=== PATIENT | female | born 2000 | race American Indian/Alaskan Native ===

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

== ENCOUNTER 2019-12-15 19:29 | Emergency (ER) | payer BC, MEDICAID ==
[2019-12-15 20:35] LABS: Basophils # (Auto) 0.1 K/mm3 (0.0-0.1); Basophils % (Auto) 1.3 % (0.0-1.8); Eosinophils # (Auto) 0.1 K/mm3 (0.0-0.4); Eosinophils % (Auto) 1.5 % (0.0-4.3); Hematocrit 36.3 % (30.3-42.9); Hemoglobin 11.9 gm/dl (10.1-14.3); Lymphocytes % (Auto) 52.4 % (13.4-35.0); Mean Corpuscular HGB Conc 33 % (30-34); Mean Corpuscular Volume 84 fl (79-97); Monocytes # (Auto) 0.3 K/mm3 (0.0-0.8); Monocytes % (Auto) 7.7 % (0.0-7.3); Platelet Count 309 K/mm3 (140-440); Red Blood Count 4.31 M/mm3 (3.65-5.03)
[2019-12-15 20:37] LABS: Bilirubin,Urine NEG (Negative); Blood,Urine NEG (Negative); Color,Urine Yellow (Yellow); Mucus,Urine FEW /HPF; Protein,Urine <15 mg/dL mg/dL (Negative); Urobilinogen,Urine < 2.0 mg/dL (<2.0)
[2019-12-15 20:45] LABS: Amphetamine Screen,Urine PRESUMPTIVE NEGATIVE; Benzodiazepines Screen,Urine PRESUMPTIVE NEGATIVE; Cannabinoid Screen,Urine PRESUMPTIVE NEGATIVE; Cocaine Screen,Urine PRESUMPTIVE NEGATIVE; Methadone Screen,Urine PRESUMPTIVE NEGATIVE; Opiate Screen,Urine PRESUMPTIVE NEGATIVE
[2019-12-15 20:48] LABS: Alanine Aminotransferase 10 units/L (7-56); Albumin 4.5 g/dL (3.9-5); BUN/Creatinine Ratio 19; Blood Urea Nitrogen 13 mg/dL (7-17); Calcium 9.5 mg/dL (8.4-10.2); Hemolysis Index 6
--- NOTE | 2019-12-15 21:42 | Emergency Department Report ---
ED Palpitations HPI - General Chief Complaint: Arrhythmia/Palpitations Stated Complaint: ABNORMAL HEART BEATS Time Seen by Provider: 12/15/19 20:06 Source: patient Mode of arrival: Ambulatory Limitations: No Limitations - History of Present Illness Initial Comments: Patient is a 19-year-old female presents emergency room with complaints of palpitations that began 2 days ago. She states it feels like her heart is fluttering. She states that it comes and goes. She denies any palpitations currently. She denies any syncope, chest pain, shortness of breath, fever, nausea, vomiting, diarrhea, leg swelling. She denies any recent travel, recent surgery, sick contacts, hormone use. She denies any past medical history or allergies to medications. She states her last menstrual cycle was December 04. She states that she very rarely ever drinks alcohol, states she uses occasional marijuana, denies any other drug use or tobacco use. She states that her only family cardiac history is her grandmother who was 65 when she had a heart issue. The patient states that she very rarely drinks caffeine she states that she has a soda every once in a while - Related Data Home Medications Medication Instructions Recorded Confirmed Last Taken Vit-Fe Fumar-FA [ 1 tab PO QDAY 10/08/18 11/25/18 11/24/18 Vitamin] Previous Rx's Medication Instructions Recorded Last Taken Type diphenhydrAMINE [Benadryl CAP] 25 mg PO Q8HR PRN #30 capsule 11/13/18 Unknown Rx Allergies Allergy/AdvReac Type Severity Reaction Status Date / Time No Known Allergies Allergy Verified 10/08/18 13:51 ED Review of Systems ROS: Stated complaint: ABNORMAL HEART BEATS Other details as noted in HPI Comment: All other systems reviewed and negative ED Past Medical Hx - Past Medical History Previous Medical History?: Yes Hx Hypertension: No Hx Congestive Heart Failure: No Hx Diabetes: No Hx Deep Vein Thrombosis: No Hx Renal Disease: No Hx Sickle Cell Disease: No Hx Seizures: No Hx Psychiatric Treatment: Yes (anxiety) Hx Asthma: No Hx COPD: No Hx HIV: No - Surgical History Past Surgical History?: No - Social History Smoking Status: Never Smoker Substance Use Type: Alcohol, Marijuana - Medications Home Medications: Home Medications Medication Instructions Recorded Confirmed Last Taken Type Vit-Fe Fumar-FA [ 1 tab PO QDAY 10/08/18 11/25/18 11/24/18 History Vitamin] diphenhydrAMINE [Benadryl CAP] 25 mg PO Q8HR PRN #30 capsule 11/13/18 11/25/18 Unknown Rx ED Physical Exam - General Limitations: No Limitations General appearance: alert, in no apparent distress - Head Head exam: Present: atraumatic, normocephalic - Eye Eye exam: Present: normal appearance - ENT ENT exam: Present: mucous membranes moist - Respiratory Respiratory exam: Present: normal lung sounds bilaterally. Absent: respiratory distress, wheezes, rales, rhonchi, stridor, chest wall tenderness, accessory muscle use, decreased breath sounds, prolonged expiratory - Cardiovascular Cardiovascular Exam: Present: regular rate, normal rhythm, normal heart sounds. Absent: systolic murmur, diastolic murmur, rubs, gallop - Extremities Exam Extremities exam: Absent: pedal edema - Neurological Exam Neurological exam: Present: alert, oriented X3 - Psychiatric Psychiatric exam: Present: normal affect, normal mood - Skin Skin exam: Present: warm, dry, intact ED Course Vital Signs 12/15/19 12/15/19 19:35 22:09 Temperature 98.6 F 98.1 F Pulse Rate 64 55 L Respiratory 18 18 Rate Blood Pressure 119/77 Blood Pressure 119/55 [Left] O2 Sat by Pulse 100 100 Oximetry ED Medical Decision Making - Lab Data Result diagrams: 12/15/19 20:14 12/15/19 20:14 Lab Results 12/15/19 12/15/19 12/15/19 Range/Units 20:09 20:09 20:14 WBC 3.9 L (4.5-11.0) K/mm3 RBC 4.31 (3.65-5.03) M/mm3 Hgb 11.9 (10.1-14.3) gm/dl Hct 36.3 (30.3-42.9) % MCV 84 (79-97) fl MCH 28 (28-32) pg MCHC 33 (30-34) % RDW 14.0 (13.2-15.2) % Plt Count 309 (140-440) K/mm3 Lymph % (Auto) 52.4 H (13.4-35.0) % [place] % (Auto) 7.7 H (0.0-7.3) % Eos % (Auto) 1.5 (0.0-4.3) % Baso % (Auto) 1.3 (0.0-1.8) % Lymph # 2.0 (1.2-5.4) K/mm3 [place] # 0.3 (0.0-0.8) K/mm3 Eos # 0.1 (0.0-0.4) K/mm3 Baso # 0.1 (0.0-0.1) K/mm3 Seg Neutrophils % 37.1 L (40.0-70.0) % Seg Neutrophils # 1.4 L (1.8-7.7) K/mm3 Sodium (137-145) mmol/L Potassium (3.6-5.0) mmol/L Chloride (98-107) mmol/L Carbon Dioxide (22-30) mmol/L Anion Gap mmol/L BUN (7-17) mg/dL Creatinine (0.7-1.2) mg/dL Estimated GFR ml/min BUN/Creatinine Ratio % Glucose (65-100) mg/dL Calcium (8.4-10.2) mg/dL Magnesium (1.7-2.3) mg/dL Total Bilirubin (0.1-1.2) mg/dL AST (5-40) units/L ALT (7-56) units/L Alkaline Phosphatase (35-129) units/L Total Creatine Kinase (30-135) units/L Troponin T (0.00-0.029) ng/mL Total Protein (6.3-8.2) g/dL Albumin (3.9-5) g/dL Albumin/Globulin Ratio % TSH (0.270-4.200) mlU/mL HCG, Qual (Negative) Urine Color Yellow (Yellow) Urine Turbidity Clear (Clear) Urine pH 6.0 (5.0-7.0) Ur Specific [place] 1.019 (1.003-1.030) Urine Protein <15 mg/dl (Negative) mg/dL Urine Glucose (UA) Neg (Negative) mg/dL Urine Ketones Neg (Negative) mg/dL Urine Blood Neg (Negative) Urine Nitrite Neg (Negative) Urine Bilirubin Neg (Negative) Urine Urobilinogen < 2.0 (<2.0) mg/dL Ur Leukocyte Esterase Neg (Negative) Urine WBC (Auto) 1.0 (0.0-6.0) /HPF Urine RBC (Auto) 2.0 (0.0-6.0) /HPF U Epithel Cells (Auto) 4.0 (0-13.0) /HPF Urine Mucus Few /HPF Urine Opiates Screen Presumptive negative Urine Methadone Screen Presumptive negative Ur Barbiturates Screen Presumptive negative Ur Phencyclidine Scrn Presumptive negative Ur Amphetamines Screen Presumptive negative U Benzodiazepines Scrn Presumptive negative Urine Cocaine Screen Presumptive negative U Marijuana (THC) Screen Presumptive negative Drugs of Abuse Note Disclamer 12/15/19 12/15/19 12/15/19 Range/Units 20:14 20:14 20:14 WBC (4.5-11.0) K/mm3 RBC (3.65-5.03) M/mm3 Hgb (10.1-14.3) gm/dl Hct (30.3-42.9) % MCV (79-97) fl MCH (28-32) pg MCHC (30-34) % RDW (13.2-15.2) % Plt Count (140-440) K/mm3 Lymph % (Auto) (13.4-35.0) % [place] % (Auto) (0.0-7.3) % Eos % (Auto) (0.0-4.3) % Baso % (Auto) (0.0-1.8) % Lymph # (1.2-5.4) K/mm3 [place] # (0.0-0.8) K/mm3 Eos # (0.0-0.4) K/mm3 Baso # (0.0-0.1) K/mm3 Seg Neutrophils % (40.0-70.0) % Seg Neutrophils # (1.8-7.7) K/mm3 Sodium 138 (137-145) mmol/L Potassium 4.0 (3.6-5.0) mmol/L Chloride 102.9 (98-107) mmol/L Carbon Dioxide 26 (22-30) mmol/L Anion Gap 13 mmol/L BUN 13 (7-17) mg/dL Creatinine 0.7 (0.7-1.2) mg/dL Estimated GFR > 60 ml/min BUN/Creatinine Ratio 19 % Glucose 81 (65-100) mg/dL Calcium 9.5 (8.4-10.2) mg/dL Magnesium 2.00 (1.7-2.3) mg/dL Total Bilirubin 0.40 (0.1-1.2) mg/dL AST 14 (5-40) units/L ALT 10 (7-56) units/L Alkaline Phosphatase 69 (35-129) units/L Total Creatine Kinase 159 H (30-135) units/L Troponin T (0.00-0.029) ng/mL Total Protein 7.0 (6.3-8.2) g/dL Albumin 4.5 (3.9-5) g/dL Albumin/Globulin Ratio 1.8 % TSH 0.807 (0.270-4.200) mlU/mL HCG, Qual Negative (Negative) Urine Color (Yellow) Urine Turbidity (Clear) Urine pH (5.0-7.0) Ur Specific [place] (1.003-1.030) Urine Protein (Negative) mg/dL Urine Glucose (UA) (Negative) mg/dL Urine Ketones (Negative) mg/dL Urine Blood (Negative) Urine Nitrite (Negative) Urine Bilirubin (Negative) Urine Urobilinogen (<2.0) mg/dL Ur Leukocyte Esterase (Negative) Urine WBC (Auto) (0.0-6.0) /HPF Urine RBC (Auto) (0.0-6.0) /HPF U Epithel Cells (Auto) (0-13.0) /HPF Urine Mucus /HPF Urine Opiates Screen Urine Methadone Screen Ur Barbiturates Screen Ur Phencyclidine Scrn Ur Amphetamines Screen U Benzodiazepines Scrn Urine Cocaine Screen U Marijuana (THC) Screen Drugs of Abuse Note 12/15/19 Range/Units 20:14 WBC (4.5-11.0) K/mm3 RBC (3.65-5.03) M/mm3 Hgb (10.1-14.3) gm/dl Hct (30.3-42.9) % MCV (79-97) fl MCH (28-32) pg MCHC (30-34) % RDW (13.2-15.2) % Plt Count (140-440) K/mm3 Lymph % (Auto) (13.4-35.0) % [place] % (Auto) (0.0-7.3) % Eos % (Auto) (0.0-4.3) % Baso % (Auto) (0.0-1.8) % Lymph # (1.2-5.4) K/mm3 [place] # (0.0-0.8) K/mm3 Eos # (0.0-0.4) K/mm3 Baso # (0.0-0.1) K/mm3 Seg Neutrophils % (40.0-70.0) % Seg Neutrophils # (1.8-7.7) K/mm3 Sodium (137-145) mmol/L Potassium (3.6-5.0) mmol/L Chloride (98-107) mmol/L Carbon Dioxide (22-30) mmol/L Anion Gap mmol/L BUN (7-17) mg/dL Creatinine (0.7-1.2) mg/dL Estimated GFR ml/min BUN/Creatinine Ratio % Glucose (65-100) mg/dL Calcium (8.4-10.2) mg/dL Magnesium (1.7-2.3) mg/dL Total Bilirubin (0.1-1.2) mg/dL AST (5-40) units/L ALT (7-56) units/L Alkaline Phosphatase (35-129) units/L Total Creatine Kinase (30-135) units/L Troponin T < 0.010 (0.00-0.029) ng/mL Total Protein (6.3-8.2) g/dL Albumin (3.9-5) g/dL Albumin/Globulin Ratio % TSH (0.270-4.200) mlU/mL HCG, Qual (Negative) Urine Color (Yellow) Urine Turbidity (Clear) Urine pH (5.0-7.0) Ur Specific [place] (1.003-1.030) Urine Protein (Negative) mg/dL Urine Glucose (UA) (Negative) mg/dL Urine Ketones (Negative) mg/dL Urine Blood (Negative) Urine Nitrite (Negative) Urine Bilirubin (Negative) Urine Urobilinogen (<2.0) mg/dL Ur Leukocyte Esterase (Negative) Urine WBC (Auto) (0.0-6.0) /HPF Urine RBC (Auto) (0.0-6.0) /HPF U Epithel Cells (Auto) (0-13.0) /HPF Urine Mucus /HPF Urine Opiates Screen Urine Methadone Screen Ur Barbiturates Screen Ur Phencyclidine Scrn Ur Amphetamines Screen U Benzodiazepines Scrn Urine Cocaine Screen U Marijuana (THC) Screen Drugs of Abuse Note - EKG Data EKG shows normal: sinus rhythm, axis, intervals, QRS complexes Rate: normal - EKG Data 12/15/19 21:50 non specific T wave inversion in V1, V2, V3 no STEMI - Radiology Data Radiology results: report reviewed CHEST 2 VIEWS INDICATION / CLINICAL INFORMATION: palpitations. COMPARISON: None available. FINDINGS: SUPPORT DEVICES: None. HEART / MEDIASTINUM: No significant abnormality. LUNGS / PLEURA: No significant pulmonary or pleural abnormality. No pneumothorax. ADDITIONAL FINDINGS: No significant additional findings. IMPRESSION: No acute finding. Signer Name: Bin Gutierres MD Signed: 12/15/2019 9:40 PM Workstation Name: [id number] Transcribed By: JULIETH Dictated By: Bin Gutierres MD Electronically Authenticated By: Bin Gutierres MD Signed Date/Time: 12/15/192139 DD/ 39 TD/TT: - Medical Decision Making Patient is a 19-year-old female presents emergency room with complaints of palpitations that began 2 days ago. She states it feels like her heart is fluttering. She states that it comes and goes. She denies any palpitations currently. She denies any syncope, chest pain, shortness of breath, fever, nausea, vomiting, diarrhea, leg swelling. She denies any recent travel, recent surgery, sick contacts, hormone use. She denies any past medical history or allergies to medications. She states her last menstrual cycle was December 04. She states that she very rarely ever drinks alcohol, states she uses occasional marijuana, denies any other drug use or tobacco use. She states that her only family cardiac history is her grandmother who was 65 when she had a heart issue. The patient states that she very rarely drinks caffeine she states that she has a soda every once in a while. vitals are normal. No abnormality on physical examination as documented on chart. Labs are stable, troponin is negative, H&H is normal, electrolytes are normal, kidney function is normal. UDS is negative. UA is within normal limits. EKG with nonspecific T wave inversion in V1, V2, V3, no STEMI. Chest x-ray with no acute process. Will refer patient to outpatient cardiology for further evaluation and management. advised pt Please increase your water intake. Please avoid caffeine use. Please avoid marijuana use. Follow-up with a donor technician. Return to the emergency room immediately for any new or worsening symptoms. - Differential Diagnosis anemia, anxiety, PTX, electrolyte issue, thyroid issue, arrhythmia Critical care attestation.: If time is entered above; I have spent that time in minutes in the direct care of this critically ill patient, excluding procedure time. ED Disposition Clinical Impression: Palpitations Disposition: DC-01 TO HOME OR SELFCARE Is pt being admited?: No Does the pt Need Aspirin: No Condition: Stable Instructions: Palpitations (ED) Additional Instructions: Please increase your water intake. Please avoid caffeine use. Please avoid marijuana use. Follow-up with a donor technician. Return to the emergency room immediately for any new or worsening symptoms. Referrals: MICK MCKEON MD [Staff Physician] - 3-5 Days [facility] [Provider Group] - 2-3 Days [facility] [Provider Group] - 2-3 Days Time of Disposition: 21:51 Print Language: SETSWANA
--- NOTE | 2019-12-15 21:45 | XRay Report ---
CHEST 2 VIEWS INDICATION / CLINICAL INFORMATION: palpitations. COMPARISON: None available. FINDINGS: SUPPORT DEVICES: None. HEART / MEDIASTINUM: No significant abnormality. LUNGS / PLEURA: No significant pulmonary or pleural abnormality. No pneumothorax. ADDITIONAL FINDINGS: No significant additional findings. IMPRESSION: No acute finding. Signer Name: Bin Gutierres MD Signed: 12/15/2019 9:40 PM Workstation Name: [id number]
[2019-12-15 22:10] VITALS: BP 119/55
== END 2019-12-15 22:10 | disposition home or self-care (01) ==
LOC: ED 19:29
DX: R00.2 Palpitations (principal); F41.9 Anxiety disorder, unspecified; F12.10 Cannabis abuse, uncomplicated; Z79.899 Other long term (current) drug therapy
CPT/HCPCS: 36415; 71046; 80053; 80307; 81001; 82550; 83735; 84443; 84484; 84703; 85025; 93005; 93010

== ENCOUNTER 2021-03-05 19:07 | Outpatient (CLI) | payer BC ==
[2021-03-05 20:02] VITALS: BP 113/62
[2021-03-05 20:56] LABS: Bacteria,Urine 1+ /HPF (Negative); Bilirubin,Urine NEG (Negative); Blood,Urine SM (Negative); Color,Urine Yellow (Yellow); Mucus,Urine FEW /HPF; Protein,Urine <15 mg/dL mg/dL (Negative); Urobilinogen,Urine < 2.0 mg/dL (<2.0)
[2021-03-05] MEDS ORDERED: LACTATED RINGERS 500 ML IV ONE (22:03)
== END 2021-03-05 22:30 | disposition home or self-care (01) ==
LOC: TRG 19:07 → APU 20:32 → TRG 22:30
PROVIDERS: ATTEND Obstetrics & Gynecology
DX: Z34.92 Encounter for supervision of normal pregnancy, unspecified, second trimester (principal); Z3A.24 24 weeks gestation of pregnancy
CPT/HCPCS: 81001

== ENCOUNTER 2021-04-22 12:44 | Outpatient (CLI) | payer BC ==
[2021-04-22] MEDS ORDERED: LACTATED RINGERS 1,000 ML IV ONE (13:43)
[2021-04-22 14:17] LABS: Bilirubin,Urine NEG (Negative); Blood,Urine NEG (Negative); Color,Urine Yellow (Yellow); Mucus,Urine FEW /HPF; Protein,Urine <15 mg/dL mg/dL (Negative)
[2021-04-22 15:30] VITALS: BP 101/59
== END 2021-04-22 15:35 | disposition home or self-care (01) ==
LOC: TRG 12:44 → APU 12:46 → TRG 15:35
PROVIDERS: ATTEND Obstetrics & Gynecology
DX: Z34.93 Encounter for supervision of normal pregnancy, unspecified, third trimester (principal); Z3A.30 30 weeks gestation of pregnancy
CPT/HCPCS: 59025; 81001; 87086

== ENCOUNTER 2021-06-29 18:39 | Inpatient (IN) | payer BC ==
[2021-06-29] MEDS ORDERED: BUTORPHANOL 2 MG/1 ML INJ IV PRN (19:28)
[2021-06-29] MEDS ORDERED: fentaNYL 100 MCG/2 ML INJ IV PRN (19:28)
[2021-06-29] MEDS ORDERED: MINERAL OIL 30 ML ORAL LIQD PO PRN (19:28)
[2021-06-29] MEDS ORDERED: OXYTOCIN 10 UNIT/1 ML INJ IM PRN (19:28)
[2021-06-29] MEDS ORDERED: LOPERAMIDE 2 MG CAP PO PRN (19:28)
[2021-06-29] MEDS ORDERED: METHYLERGONOVINE MALEATE 0.2 MG/ML VIAL IM PRN (19:28)
[2021-06-29] MEDS ORDERED: CARBOPROST TROMETHAMINE 250 MCG/1 ML INJ IM PRN (19:28)
[2021-06-29] MEDS ORDERED: TERBUTALINE 1 MG/1 ML INJ SUB-Q PRN (19:28)
[2021-06-29] MEDS ORDERED: ACETAMINOPHEN 325 MG TAB PO PRN (19:28)
[2021-06-29] MEDS ORDERED: LIDOCAINE (2%) 20 MG/1 ML VIAL 20 ML MDV INFILTRATI ONE (19:28)
[2021-06-29] MEDS ORDERED: miSOPROStol 200 MCG TAB PR PRN (19:28)
[2021-06-29] MEDS ORDERED: ONDANSETRON 4 MG/2 ML INJ IV PRN ×2 (19:28→22:32)
[2021-06-29] MEDS ORDERED: ePHEDrine SULFATE 50 MG/1 ML INJ IV PRN (19:28)
[2021-06-29] MEDS ORDERED: LACTATED RINGERS 1,000 ML IV SCH (19:30)
--- NOTE | 2021-06-29 19:36 | History and Physical Report ---
History of Present Illness Date of examination: 06/29/21 Date of admission: 06/29/2021 Chief complaint: Contractions History of present illness: 20 year old female presents to L&D with contractions. Patient receives care at [facility] but no records are available. EDC 07/01/21 per patient report. labs drawn upon admission. Patient reports an uncomplicated . Past History Past Medical History: no pertinent history Past Surgical History: other (wisdom teeth) [facility] History: denies: fibroids, gonorrhea, hepatitis B, hepatitis C, HIV, syphilis, trichomonas Family/Genetic History: diabetes Social history: no significant social history, full code. denies: smoking, alcohol abuse, prescription drug abuse, IV drug use - Obstetrical History Expected Date of Delivery: 07/01/21 Actual Gestation: 39 Week(s) 5 Day(s) : 2 Para: 1 Hx # Term Pregnancies: 1 Number of Pregnancies: 0 Spontaneous Abortions: 0 Induced : 0 Number of Living Children: 1 Medications and Allergies Allergies Allergy/AdvReac Type Severity Reaction Status Date / Time No Known Allergies Allergy Verified 10/08/18 13:51 Home Medications Medication Instructions Recorded Confirmed Last Taken Type Vit-Fe Fumar-FA [ 1 tab PO QDAY 10/08/18 11/25/18 11/24/18 History Vitamin] diphenhydrAMINE [Benadryl CAP] 25 mg PO Q8HR PRN #30 capsule 11/13/18 11/25/18 Unknown Rx Active Meds: Active Medications Acetaminophen (Acetaminophen 325 Mg Tab) 650 mg PO Q4H PRN PRN Reason: Pain, Mild (1-3) Butorphanol Tartrate (Butorphanol 2 Mg/1 Ml Inj) 1 mg IV Q2H PRN PRN Reason: Pain, Moderate(4-6) LABOR PAIN Carboprost Tromethamine (Carboprost Tromethamine 250 Mcg/1 Ml Inj) 250 mcg IM ONCE PRN PRN Reason: Uterine Bleeding Ephedrine Sulfate (Ephedrine Sulfate 50 Mg/1 Ml Inj) 10 mg IV Q2M PRN PRN Reason: Hypotension Fentanyl (Fentanyl 100 Mcg/2 Ml Inj) 100 mcg IV Q2H PRN PRN Reason: Pain,Severe (7-10) LABOR PAIN Lactated Ringer's (Lactated Ringers) 1,000 mls @ 125 mls/hr IV DIRECT AMADOR Oxytocin/Sodium Chloride (Pitocin/Ns 30 Unit/500ml) 30 units in 500 mls @ 40 mls/hr IV TITR AMADOR; Protocol Ampicillin Sodium (Ampicillin/Ns 2 Gm/100 Ml) 2 gm in 100 mls @ 100 mls/hr IV ONCE ONE; Protocol Stop: 06/29/21 21:29 Ampicillin Sodium (Ampicillin/Ns 1 Gm/50 Ml) 1 gm in 50 mls @ 100 mls/hr IV Q4H AMADOR; Protocol Loperamide HCl (Loperamide 2 Mg Cap) 2 mg PO ONCE PRN PRN Reason: give with Hemabate Methylergonovine Maleate (Methylergonovine Maleate 0.2 Mg/Ml Vial) 0.2 mg IM ONCE PRN PRN Reason: Uterine Bleeding Mineral Oil (Mineral Oil 30 Ml Oral Liqd) 30 ml PO QHS PRN PRN Reason: Constipation Misoprostol (Misoprostol 200 Mcg Tab) 800 mcg FL ONCE PRN PRN Reason: Uterine Bleeding Ondansetron HCl (Ondansetron 4 Mg/2 Ml Inj) 4 mg IV Q8H PRN PRN Reason: Nausea And Vomiting Oxytocin (Oxytocin 10 Unit/1 Ml Inj) 10 unit IM ONCE PRN PRN Reason: Uterine Bleeding Terbutaline Sulfate (Terbutaline 1 Mg/1 Ml Inj) 0.25 mg SUB-Q ONCE PRN PRN Reason: Hyperstimulation/Hypertonicity Review of Systems All systems: negative (contractions) - Vital Signs Vital signs: Vital Signs Pulse BP Pulse Ox 77 142/70 100 06/29/21 19:20 06/29/21 19:20 06/29/21 19:20 Temp Pulse Resp BP Pulse Ox 72 142/70 100 06/29/21 19:35 06/29/21 19:20 06/29/21 19:35 - Physical Exam Abdomen: Positive: normal appearance, soft. Negative: distention, tenderness, guarding, rigidity Genitourinary (Female): Positive: normal external genitalia, normal perenium. Negative: perineal/vulvar lesions Vagina: Positive: normal moisture Uterus: Positive: enlarged. Negative: tender Anus/Rectum: Positive: normal perianal skin Extremities: Negative: tenderness, edema - Obstetrical FHR: category 1 Uterine Contraction Monitor Mode: External Cervical Dilatation: 5 Cervical Effacement Percentage: 100 (BBOW) station: -2 Results All other labs normal. Assessment and Plan A: at 39 weeks, 5 days gestation. Active labor. GBS unknown. No records available. P: Admit. EFM. Draw labs. Request/obtain records. Epidural if desired by patient. Anticipate vaginal .
[2021-06-29] MEDS ORDERED: OXYTOCIN DRIP 30 UNITS/500 ML BAG IV SCH (20:00)
[2021-06-29 20:30] LABS: Hematocrit 36.5 % (30.3-42.9); Hemoglobin 12.7 gm/dl (10.1-14.3); Mean Corpuscular HGB Conc 35 % (30-34); Mean Corpuscular Volume 88 fl (79-97); Platelet Count 173 K/mm3 (140-440); Red Blood Count 4.13 M/mm3 (3.65-5.03); Red Cell Distribution Width 13.4 % (13.2-15.2)
[2021-06-29] MEDS ORDERED: AMPICILLIN/NS 2 GM/100 ML 2 GM/100 ML BAG IV ONE (20:30)
[2021-06-29 21:01] LABS: Blood Urea Nitrogen 7 mg/dL (7-17); Calcium 9.7 mg/dL (8.4-10.2); Hemolysis Index 53; Uric Acid 3.1 mg/dL (3.5-7.6)
[2021-06-29 21:03] LABS: Alanine Aminotransferase < 5 units/L (7-56); Albumin < 0.2 g/dL (3.9-5); BUN/Creatinine Ratio 18
[2021-06-29] MEDS ORDERED: LANOLIN/ZINC/DIMETHICONE (LANSINOH) 7 GM TP PRN (22:32)
[2021-06-29] MEDS ORDERED: diphenhydrAMINE 25 MG CAP PO PRN (22:32)
[2021-06-29] MEDS ORDERED: WITCH HAZEL/ GLYCERIN PAD TP PRN (22:32)
[2021-06-29] MEDS ORDERED: MAGNESIUM HYDROXIDE (MOM) ORAL LIQD UDC PO PRN (22:32)
--- NOTE | 2021-06-29 22:37 | Procedure Note ---
OB Delivery Note - Delivery Date of Delivery: 06/29/21 Surgeon: BEKAH FROST Estimated blood loss: other (250 cc) - Vaginal Delivery presentation: vertex Delivery position: OA Intrapartum events: none Delivery induction: none Delivery monitor: external FHT, external uterine Route of delivery: Delivery placenta: spontaneous Delivery cord: 3 umbilical vessels, other (loose body cord x1) Delivery laceration: none Anesthesia: none Delivery comments: Spontaneous vaginal delivery at 22:14 of liveborn female infant weighing 3.51 kg over intact perineum with apgars of 8/9. was atraumatic; OP presentation. Loose body cord times 1, manually reduced. Baby placed skin to skin with mom immediately after delivery. Spontaneous cry and respirations. Baby dried with warm towels and suctioned with bulb syringe. 3 vessel cord double clamped and cut (delayed cord clamping); cord blood obtained. Spontaneous delivery of intact placenta and membranes at 22:19. Trailing membranes. Fundus firm and midline at umbilicus. Pitocin to IV fluids after delivery of placenta. EBL 250 cc. No lacerations noted. Vaginal sweep negative. Sponge count correct. Mother and baby stable in birthing room.
[2021-06-29 22:39] LABS: Hepatitis C Virus Antibody Non-Reactive (NonReactive)
[2021-06-29] MEDS ORDERED: AMPICILLIN/NS 1 GM/50 ML 1 GM/50 ML BAG IV SCH (23:59)
--- NOTE | 2021-06-30 01:54 | Ultrasound Report ---
ULTRASOUND PELVIS INDICATION / CLINICAL INFORMATION: check for accessory lobe. TECHNIQUE: Transabdominal. Duplex Color Doppler used: Yes. COMPARISON: None available FINDINGS: UTERUS: - Appearance: No significant abnormality. - Size (cm): Not measured - Endometrial Complex (if present): There is heterogeneous thickening of the endometrium with multipl e foci of flow. Thickness in cm (if measured) = 2.3 - Mass or cyst: None. - Additional findings: None. RIGHT ADNEXA: Not evaluated LEFT ADNEXA: Not evaluated URINARY BLADDER: Not evaluated FREE FLUID: None. ADDITIONAL FINDINGS: None. IMPRESSION: 1. Thickened endometrium (2.3 cm) with a heterogeneous echotexture and increased flow concerning for retained products of conception Signer Name: Pablo Frost DO Signed: 06/30/2021 1:50 AM Workstation Name: [id number]
[2021-06-30] MEDS: METHYLERGONOVINE 0.2 MG TABLET PO SCH ×3 (04:26→21:59)
[2021-06-30] MEDS: IBUPROFEN 600 MG TAB PO SCH ×3 (04:26→18:04)
[2021-06-30 07:58] LABS: Amphetamine Screen,Urine Negative; Benzodiazepines Screen,Urine Negative; Cannabinoid Screen,Urine Negative; Cocaine Screen,Urine Negative; Methadone Screen,Urine Negative; Opiate Screen,Urine Negative
[2021-06-30 08:06] LABS: Bilirubin,Urine NEG (Negative); Blood,Urine LG (Negative); Color,Urine Yellow (Yellow); Mucus,Urine FEW /HPF; Urobilinogen,Urine < 2.0 mg/dL (<2.0)
[2021-06-30 08:08] LABS: RBC,Urine > 182.0 /HPF (0.0-6.0)
[2021-06-30] MEDS: DOCUSATE SODIUM 100 MG CAP PO SCH ×2 (09:31→21:59)
[2021-06-30] MEDS: HYDROcodone/ACETAMINOPHEN 5-325 MG TAB PO PRN ×2 (09:31→22:05)
--- NOTE | 2021-06-30 10:16 | Progress Note ---
Assessment and Plan A: S/P Delayed pp hemm Awaiting pp H&H p: Continue routine pp orders Continue Methergine as ordered D/C home within 24 -48 hrs if stable Subjective - Subjective Date of service: 06/30/21 Principal diagnosis: s/p Patient reports: appetite normal, voiding normally, pain well controlled, ambulating normally, other (rubra lochia wnl) : doing well, bottle feeding Objective - Vital Signs Latest vital signs: Vital Signs Temp Pulse Resp BP BP Pulse Ox Pulse Ox 06/30/21 08:48 98.4 F 76 18 116/63 99 06/30/21 08:00 98 06/30/21 06:33 98.7 F 60 18 122/68 99 06/30/21 02:30 98.5 F 70 14 111/65 98 98 06/30/21 01:12 61 114/72 06/30/21 01:11 99 06/30/21 01:06 75 95 06/30/21 01:03 75 94 06/30/21 01:01 74 95 06/30/21 00:57 75 112/65 06/30/21 00:56 74 97 06/30/21 00:51 89 06/30/21 00:49 64 93 06/30/21 00:46 58 L 97 06/30/21 00:43 54 L 90 06/30/21 00:42 69 140/67 06/30/21 00:41 75 98 06/30/21 00:36 92 H 97 06/30/21 00:33 75 92 06/30/21 00:31 76 97 06/30/21 00:27 67 115/63 06/30/21 00:26 72 96 06/30/21 00:21 66 96 06/30/21 00:16 62 97 06/30/21 00:13 81 89 06/30/21 00:12 62 119/67 06/30/21 00:11 69 95 06/30/21 00:06 72 100 06/30/21 00:01 79 97 06/29/21 23:57 66 125/64 94 06/29/21 23:56 78 97 06/29/21 23:51 68 92 06/29/21 23:44 66 96 06/29/21 23:42 68 123/56 06/29/21 23:39 73 95 06/29/21 23:38 83 92 06/29/21 23:34 71 97 06/29/21 23:33 72 92 06/29/21 23:29 67 96 06/29/21 23:27 60 131/80 06/29/21 23:24 66 97 06/29/21 23:19 64 97 06/29/21 23:14 65 97 06/29/21 23:12 68 132/72 06/29/21 23:09 64 97 06/29/21 23:04 66 98 06/29/21 22:59 65 98 06/29/21 22:58 70 136/70 06/29/21 22:54 74 97 06/29/21 22:51 85 94 06/29/21 22:49 72 97 06/29/21 22:44 83 95 06/29/21 22:42 82 131/81 06/29/21 22:39 83 18 95 06/29/21 22:37 98.2 F 66 18 135/60 95 06/29/21 22:27 83 135/60 06/29/21 22:15 79 L 06/29/21 22:07 81 100 06/29/21 22:05 78 81 L 06/29/21 22:02 72 100 06/29/21 21:57 83 98 06/29/21 21:52 80 94 06/29/21 21:51 91 H 93 06/29/21 21:47 73 87 06/29/21 21:45 99.3 F 77 94 06/29/21 21:42 81 97 06/29/21 21:39 18 06/29/21 21:38 74 94 06/29/21 21:37 70 96 06/29/21 21:34 18 06/29/21 21:33 77 93 06/29/21 21:32 76 94 06/29/21 21:27 64 88 06/29/21 21:22 85 97 06/29/21 21:20 80 83 L 06/29/21 21:17 74 99 06/29/21 21:12 72 98 06/29/21 21:08 74 98 06/29/21 21:04 87 94 06/29/21 21:02 67 99 06/29/21 20:57 75 98 06/29/21 20:53 71 98 06/29/21 20:51 72 126/68 06/29/21 20:50 100.0 F H 87 18 126/68 98 06/29/21 20:48 74 98 06/29/21 20:45 98 06/29/21 20:44 18 06/29/21 20:43 75 98 06/29/21 20:38 76 94 06/29/21 20:37 74 100 06/29/21 20:32 82 100 06/29/21 20:30 75 82 L 06/29/21 20:27 97 H 97 06/29/21 20:22 82 87 06/29/21 20:17 85 98 06/29/21 20:14 68 85 06/29/21 19:46 95 H 99 06/29/21 19:41 81 100 06/29/21 19:35 72 100 06/29/21 19:30 92 H 99 06/29/21 19:25 89 100 06/29/21 19:20 98.1 F 84 18 142/70 142/70 99 Intake and Output 06/29/21 06/30/21 06/30/21 22:59 06:59 14:59 Intake Total 360 Output Total 600 Balance -240 Intake: Intake, Free Water 360 Output: Urine 600 Void 600 Other: Total, Output Amount 600 Weight 184 lb Estimated Blood Loss 300 - Exam Breasts: Present: normal Abdomen: Present: normal appearance, soft, normal bowel sounds Vulva: both: normal Uterus: Present: normal, firm, fundal height below umbilicus Extremities: Present: normal - Labs Labs: Abnormal lab results 06/29/21 06/29/21 Range/Units 20:15 20:15 MCHC 35 H (30-34) % Carbon Dioxide 20 L (22-30) mmol/L Creatinine 0.4 L (0.6-1.2) mg/dL Uric Acid 3.1 L (3.5-7.6) mg/dL ALT < 5 L (7-56) units/L Alkaline Phosphatase < 5 L (35-129) units/L Lactate Dehydrogenase < 10 L (91-180) units/L Albumin < 0.2 L (3.9-5) g/dL
[2021-06-30 10:28] LABS: Hematocrit 32.8 % (30.3-42.9); Hemoglobin 11.3 gm/dl (10.1-14.3)
[2021-07-01] MEDS: IBUPROFEN 600 MG TAB PO SCH (05:38)
[2021-07-01] MEDS: METHYLERGONOVINE 0.2 MG TABLET PO SCH (05:38)
--- NOTE | 2021-07-01 08:46 | Discharge Summary ---
Providers - Providers Date of Admission: 06/29/21 19:28 Date of discharge: 07/01/21 Attending physician: DHEERAJ LUND JR, MD Primary care physician: DHEERAJ LUND JR, MD Hospitalization Reason for admission: active labor, IUP at term Delivery: Episiotomy: none Laceration: none Other procedures: none complications: none, other (received Methergine pp for delayed pp hemorrhage) Discharge diagnosis: IUP at term delivered [place] baby: female Hospital course: Pt was admitted to [facility] in active labor and had a . She received Methergine pp for a delayed pp hemorrhage. See h&p, delivery summary, and pp notes. Condition at discharge: Stable Disposition: 01 HOME / SELF CARE / HOMELESS Plan - Discharge Medications Prescriptions: Ibuprofen [Motrin 600 MG tab] 600 mg PO Q6HR PRN #30 tablet PRN Reason: Menstrual Cramps - Provider Discharge Summary Activity: routine, no sex for 6 weeks, no heavy lifting 4 weeks, no strenuous exercise Diet: routine Instructions: routine Additional instructions: [] Smoking cessation referral if applicable(refer to patient education folder for contact #) [] Refer to [facility] Booklet Call your doctor immediately for: * Fever > 100.5 * Heavy vaginal bleeding ( >1 pad per hour) * Severe persistent headache * Shortness of breath * Reddened, hot, painful area to leg or breast * Drainage or odor from incision. * Keep incision clean and dry at all times and follow doctor's instructions regarding bathing/showering - Follow up plan Follow up: DHEERAJ LUND JR, MD [Primary Care Provider] - 6 Weeks
[2021-07-01 14:28] VITALS: BP 105/67
== END 2021-07-01 14:30 | disposition home or self-care (01) | DRG 807 ==
LOC: TRG 18:39 → APU 18:40 → TRG 19:28 → LD 19:28 → OB 06-30 01:34
PROVIDERS: ADMIT Obstetrics & Gynecology; ATTEND Obstetrics & Gynecology
PROC: 10E0XZZ Delivery of Products of Conception, External Approach (ICD-10-PCS; principal; 2021-06-29)
DX: O72.2 Delayed and secondary postpartum hemorrhage (principal); Z37.0 Single live birth; Z3A.39 39 weeks gestation of pregnancy; Z20.822 Contact with and (suspected) exposure to COVID-19
CPT/HCPCS: 36415; 59025; 76857; 80053; 80307; 81001; 83615; 84550; 85014; 85018; 85027; 86592; 86706; 86762; 86803; 86850; 86900; 86901; 87086; 87806; 99211; G0378; G0463; J0290; J2590; J3010; J7120; U0003